=== PATIENT | female | born 1980 | race Caucasian/White ===

== ENCOUNTER 2022-07-14 14:54 | Day surgery (SDC) | payer OTHER ==
[2022-07-14] MEDS ORDERED: Depo-Medrol 40 MG/ML IM ONE (14:55)
[2022-07-14] MEDS ORDERED: BUPIVACAINE 0.5% VIAL IJ ONE (14:55)
[2022-07-14] MEDS ORDERED: LIDOCAINE HCL 1% 50 MG/5 ML VL PF IJ ONE (14:55)
--- NOTE | 2022-07-14 16:54 | XRAY ---
45 seconds of fluoroscopy was used in surgery for a right intra-articular hip and greater trochanteric bursa injection.
--- NOTE | 2022-07-14 16:54 | XRAY ---
Indication: Right hip and greater trochanter bursa injection. Intraoperative fluoroscopy provided for 45 seconds. 3 digital spot image submitted for interpretation demonstrates needle tips projecting lateral to the right femur neck and greater trochanter. Small amount of contrast injected for both needle tip placement. Correlate with intraoperative findings/report.
== END 2022-07-14 16:55 | disposition home or self-care (01) ==
LOC: SDC-PAIN 14:54
PROVIDERS: ATTEND Psychiatry & Neurology Pain Medicine
DX: M70.61 Trochanteric bursitis, right hip (principal); M16.11 Unilateral primary osteoarthritis, right hip; Z79.899 Other long term (current) drug therapy
CPT/HCPCS: 20610; 73502; 77002; 81025; J1030; J2001; Q9966

== ENCOUNTER 2022-08-18 15:23 | Day surgery (SDC) | payer OTHER ==
[2022-08-18] MEDS ORDERED: LIDOCAINE HCL 1% 50 MG/5 ML VL PF IJ ONE (15:24)
[2022-08-18] MEDS ORDERED: BUPIVACAINE 0.5% VIAL IJ ONE (15:24)
[2022-08-18] MEDS ORDERED: Depo-Medrol 40 MG/ML IM ONE (15:24)
[2022-08-18 15:55] LABS: HCG URINE TEST NEGATIVE (NEGATIVE)
--- NOTE | 2022-08-18 18:26 | XRAY ---
Indication: Right SI joint injection. Intraoperative fluoroscopy provided for 11 seconds. 3 digital spot image submitted for interpretation demonstrates posterior needle tip projecting over the right SI joint. Correlate with intraoperative findings/report.
--- NOTE | 2022-08-19 17:15 | XRAY ---
11 seconds of fluoroscopy was used in surgery for a right SI joint injection.
== END 2022-08-18 16:00 | disposition home or self-care (01) ==
LOC: SDC-PAIN 15:23
PROVIDERS: ATTEND Psychiatry & Neurology Pain Medicine
DX: M46.1 Sacroiliitis, not elsewhere classified (principal); Z79.899 Other long term (current) drug therapy
CPT/HCPCS: 27096; 36415; 72170; 77002; 81025; G0260; J1030; J2001

== ENCOUNTER 2022-12-29 16:14 | Day surgery (SDC) | payer OTHER ==
[2022-12-29] MEDS ORDERED: Depo-Medrol 40 MG/ML IM ONE (16:15)
[2022-12-29] MEDS ORDERED: Sodium Chloride 0.9(Preservative Free) 10 ML IJ ONE (16:15)
[2022-12-29] MEDS ORDERED: LIDOCAINE HCL 1% 50 MG/5 ML VL PF IJ ONE (16:15)
[2022-12-29 16:35] LABS: HCG URINE TEST NEGATIVE (NEGATIVE)
[2022-12-29] MEDS ORDERED: Lactated Ringers 1,000 ML IV ONE (17:39)
--- NOTE | 2022-12-29 18:39 | XRAY ---
Indication: Right L3-L5 transforaminal LUIS. Intraoperative fluoroscopy provided for 56 seconds. 9 digital spot image submitted for interpretation demonstrates posterior needle tips projecting over the expected right L3 and L4 nerve roots. Small amount of contrast injected for needle tip placement. Correlate with intraoperative findings/report.
--- NOTE | 2022-12-30 08:42 | XRAY ---
56 seconds of fluoroscopy was used in surgery for a right L3-L5 transforaminal LUIS.
== END 2022-12-29 18:17 | disposition home or self-care (01) ==
LOC: SDC-PAIN 16:14
PROVIDERS: ATTEND Psychiatry & Neurology Pain Medicine
DX: M54.16 Radiculopathy, lumbar region (principal); Z79.899 Other long term (current) drug therapy
CPT/HCPCS: 64483; 64484; 72100; 77003; 81025; J1030; J2001; Q9966